=== PATIENT | male | born 1940 | race Caucasian/White ===

== ENCOUNTER 2017-05-31 17:26 | Emergency (ER) | payer OTHER, MEDICARE ==
[~2017-05-31] VITALS: Ht 167.6 cm; Wt 82.7 kg
[~2017-05-31 17:26] MED LIST: ASPIR-LOW81 MG PO; ASPIRIN325 MG PO; CLOPIDOGREL75 MG PO; DYNAPEN500 MG PO; FENOFIBRATE145 M1 PO; FISH OIL 1,0001 EAC7 PO; FISH OIL 1,2001 EAC4 PO; LISINOPRIL2.5 MG PO; LYRICA100 MG PO; LYRICA50 MG PO; METOPROLOL SUCC50 MG PO; METOPROLOL TART50 MG PO; MULTIVITAMIN1 EAC2 PO; NITROSTAT0.4 MG SL; PRAVASTATIN SOD20 MG PO; REPATHA SY140 MG/1 M SC; TRICOR145 MG PO; XALATAN2.5 ML BOTH EYES
[2017-05-31 18:00] LABS: HEMATOCRIT 43.5 % (38.0-50.0); HEMOGLOBIN 14.6 G/DL (12.5-16.6); MCH 30.1 PG (29.0-34.0); MCHC 33.6 G/DL (30.0-36.0); MCV 89.7 FL (86-99); PLATELET COUNT 174 K/uL (156-360); RBC DIS.WIDTH-CV 12.2 % (11.8-14.6); RBC DIS.WIDTH-SD 40.1 % (39-53); RED BLOOD COUNT 4.85 M/uL (4.00-5.50); WHITE BLOOD COUNT 6.3 K/uL (4.1-10.2)
[2017-05-31 18:22] LABS: TROP-I INTERPRETATION NEGATIVE; TROPONIN-I < 0.01 ng/mL (0.0-0.30)
[2017-05-31 18:28] LABS: CHLORIDE 108 MEQ/L (99-109); CREATININE 1.4 MG/DL (0.6-1.3); GFR ESTIMATE (CALCULATED) 53 mL/min/ (58.99-99999); GLUCOSE 101 mg/dL (70-99); POTASSIUM 4.5 MEQ/L (3.7-5.4); SODIUM 141 MEQ/L (136-147); UREA NITROGEN (BUN) 36 mg/dL (9-23)
[2017-05-31 20:29] VITALS: BP 136/97
== END 2017-05-31 20:30 | disposition home or self-care (01) ==
LOC: EME 17:26
DX: G89.18 Other acute postprocedural pain (principal); R07.9 Chest pain, unspecified; Z95.810 Presence of automatic (implantable) cardiac defibrillator; I50.9 Heart failure, unspecified; E78.5 Hyperlipidemia, unspecified; I25.2 Old myocardial infarction; Z95.5 Presence of coronary angioplasty implant and graft; Z85.828 Personal history of other malignant neoplasm of skin; Z79.82 Long term (current) use of aspirin
CPT/HCPCS: 71046; 80048; 84484; 85027; 93005; 99281; 99285